=== PATIENT | male | born 1960 | race Caucasian/White ===

== ENCOUNTER 2020-07-13 23:21 | Emergency (ER) | payer BC ==
[~2020-07-13] VITALS: Ht 172.7 cm; Wt 77.0 kg
[~2020-07-13 23:21] MED LIST: CEPH-368 PO; METH750T87 PO; NAPR220T77 PO; OXYC10TA6 PO; OXYC1TAB18 PO
[2020-07-14] MEDS ORDERED: METHOCARBAMOL 750 MG TABLET PO ONE
[2020-07-14] MEDS ORDERED: HYDROmorphone 1 MG/ML, 1ML INJ IM ONE
[2020-07-14] MEDS ORDERED: KETOROLAC 30 MG/1 ML IM ONE
[2020-07-14] MEDS ORDERED: KETOROLAC 60 MG/2 ML ONE (00:09)
[2020-07-14] MEDS ORDERED: HYDROmorphone 2 MG/ML, 1ML ONE (00:09)
[2020-07-14] MEDS ORDERED: METHOCARBAMOL 750 MG TABLET ONE (00:09)
--- NOTE | 2020-07-14 00:36 | NUR ---
CC OF "ICANT WALK" AND NUMBNESS/TINGLING AND PAIN TO LEFT HIP. PT HAS FUSIONS IN BACK AND NECK. PT USES WHEELCHAIR AT HOME. SON AT BEDSIDE
[2020-07-14] MEDS ORDERED: DEXAMETHASONE 4 MG TABLET ONE (00:47)
--- NOTE | 2020-07-14 00:53 | NUR ---
REPORTS SOME RELIEF FROM MEDICATIONS. SYAYS "ITS LESS TENSE".
[2020-07-14] MEDS ORDERED: DEXAMETHASONE 4 MG TABLET PO ONE (01:00)
[2020-07-14 01:02] VITALS: BP 128/98
== END 2020-07-14 01:11 | disposition home or self-care (01) ==
LOC: ED 07-14 → UNDOADMIN 07-14 00:20 → EDIP 07-14 00:20 → ED 07-14 01:11
DX: M54.16 Radiculopathy, lumbar region (principal); M54.42 Lumbago with sciatica, left side; F17.200 Nicotine dependence, unspecified, uncomplicated; Z98.1 Arthrodesis status
CPT/HCPCS: 96372; 99284; J1170; J1885

== ENCOUNTER 2021-01-04 21:42 | Emergency (ER) | payer BC ==
[~2021-01-04] VITALS: Ht 172.7 cm; Wt 73.3 kg
--- NOTE | 2021-01-04 22:23 | NUR ---
pt presents to the ER with a complaint of left flank pain, pt stated it started last night after pt had a six pack with his , pt denies blood in the urine, no fever, no N/V, no fever or chills, pt stated he was seen at [facility] a month ago for pylonephritis and they gave him ABX and discharged him, pt states he feel candice from his left flank into his scrotum
[2021-01-04] MEDS ORDERED: KETOROLAC 30 MG/1 ML IM ONE (22:30)
[2021-01-04] MEDS ORDERED: KETOROLAC 30 MG/1 ML ONE (22:36)
--- NOTE | 2021-01-04 22:53 | NUR ---
pt laying in bed, a/ox4, pt stated he could not provide a urine sample at this time but would inform this RN when he would be able
[2021-01-04 23:04] LABS: BASOPHILS % (AUTO) 1 % (0-1); EOSINOPHILS % (AUTO) 5 % (1-7); LYMPHOCYTES % (AUTO) 22 % (22-44); MEAN CORPUSCULAR HEMOGLOBIN 33.7 pg (27.5-34.5); MEAN CORPUSCULAR HGB CONC 34.3 g/dL (33.2-36.2); MEAN PLATELET VOLUME 7.4 fL (7.4-10.4); MONOCYTES % (AUTO) 9 % (2-9); NEUTROPHILS % (AUTO) 63 % (42-75); PLATELET COUNT 199 x10^3/uL (130-400); RED BLOOD COUNT 4.44 x10^6/uL (4.38-5.82); RED CELL DISTRIBUTION WIDTH 13.5 % (9.4-14.8)
[2021-01-04 23:09] LABS: ANION GAP 4 mmol/L (5-15); CALCIUM 7.9 mg/dL (8.5-10.1); CHLORIDE 111 mmol/L (98-107); CREATININE 0.87 mg/dL (0.7-1.3)
[2021-01-04 23:23] LABS: MICROSCOPIC NOT IND
[2021-01-04 23:56] VITALS: BP 111/61
== END 2021-01-04 23:58 | disposition home or self-care (01) ==
LOC: ED 23:00
DX: S39.012A Strain of muscle, fascia and tendon of lower back, initial encounter (principal); R10.9 Unspecified abdominal pain; X58.XXXA Exposure to other specified factors, initial encounter; Y93.89 Activity, other specified; Y92.89 Other specified places as the place of occurrence of the external cause; Y99.8 Other external cause status
CPT/HCPCS: 36415; 76770; 80048; 81003; 85025; 96372; 99284; J1885